=== PATIENT | female | born 1945 | race Caucasian/White ===

== ENCOUNTER 2016-12-17 04:24 | Inpatient (IN) | payer OTHER ==
--- NOTE | 2016-12-09 09:02 | History & Physical Pre-Op ---
General Information and HPI History of Present Illness: Patient present for re-evaluation of hiatal hernia. It has been present for decades per her report. Previously known by me and found to have entire stomach in chest. Most recent CT chest reviewed, there is now majority of transverse colon in chest. She c/o heartburn relieved by OTC antacids. She has intermittent dysphagia to solids and occasional odynophagia. There is new nausea associated with right shoulder pain. No chest pain. Recently, there was presyncope of unclear etiology. Allergies/Medications Allergies: Coded Allergies: MDX - SULFA (sulfonamide) (SULFA (SULFONAMIDE)) (UNKNOWN 12/26/14) Home Med list Alendronate Sodium (Fosamax) 70 MG TABLET 1 TAB PO QW unk (Reported) in the morning, at least 30 minutes before the first food, beverage, or medication of the day Omeprazole (Prilosec) 20 MG CAPSULE.DR 1 CAP PO BID ACID REFLUX (Reported) Past History Medical History Neurological: NONE EENT: NONE Cardiovascular: NONE Respiratory: NONE Gastrointestinal: GERD, irritable bowel syndrome, HIATAL HERNIA Hepatic: LIVER ABSESS W DRAIN Renal: NONE Musculoskeletal: ARTHRITIS Psychiatric: NONE Endocrine: NONE Blood Disorders: NONE Cancer(s): NONE 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 She reports back pain but reports no muscle aches, no muscle weakness, and no arthralgias/ joint pain. She reports no fatigue, no fever, no night sweats, no significant weight gain, no significant weight loss, and no exercise intolerance. She reports no dry eyes, no irritation, no vision change, and no discharge. She reports no swollen glands and no neck stiffness. She reports no cough, no wheezing, no shortness of breath, and no coughing up blood. She reports no chest pain, no arm pain on exertion, no shortness of breath when walking, no shortness of breath when lying down, no palpitations, and no leg swelling. She reports no abdominal pain, no vomiting, no vomiting blood, normal appetite, no diarrhea, no constipation, no rectal bleeding, and no history of GERD. She reports no incontinence, no difficulty urinating, no hematuria, and no increased frequency. Exam & Diagnostic Data Physical Exam: Patient is a 70-year-old female. Constitutional: General Appearance: healthy-appearing, well-nourished, and well- developed. Level of Distress: no acute distress. Ambulation: ambulating normally. Head: Head: normocephalic and atraumatic. Cardiovascular: Heart Auscultation: normal S1 and S2, no rubs or gallops, and regular rate and rhythm and systolic ejection murmur. Lungs: Respiratory effort: no dyspnea. Percussion: no dullness, flatness, or hyperresonance. Auscultation: no wheezing, rales/crackles, or rhonchi and good air movement and decreased breath sounds (left). Back: Thoracolumbar Appearance: normal curvature. Abdomen: Inspection and Palpation: no tenderness, guarding, masses, rebound tenderness, or CVA tenderness and soft and non-distended. Bowel Sounds: normal. Liver: non-tender and no hepatomegaly. Spleen: non-tender and no splenomegaly. Hernia: none palpable. Skin: Inspection and palpation: no rash, lesions, ulcer, induration, nodules, jaundice, or abnormal nevi and good turgor. Musculoskeletal:: Extremities: no cyanosis, varicosities, or palpable cord and edema. Motor Strength and Tone: normal tone and motor strength. Joints, Bones, and Muscles: no contractures, malalignment, tenderness, or bony abnormalities and normal movement of all extremities. Psychiatric: Insight: good judgement and insight. Mental Status: normal mood and affect and active and alert. Orientation: to time, place, and person. Memory: recent memory normal and remote memory normal. Assessment/Plan Assessment/Plan: Hiatal hernia with obstruction but no gangrene - large type 4 hernia with stomach and colon. Concerning symptoms of right shoulder pain and nausea with presyncope. It could be due to intermittent stranglulation. Recommend hiatal hernia repair with mesh and Delfino fundoplication. K44.0: Diaphragmatic hernia with obstruction, without gangrene XRY-BARIUM SWALLOW/ESOPHAGRAM Discussion Notes Discussed compications of surgery including but not limited to bleeding, infection, bowel injury, pneumothorax, dysphagia and bloating. Discussed the postoperative diet plan and a copy was given to the patient for review. Adddendum: upper GI shows large hiatal hernia with entire stomach in chest with nonobstructive organoaxial volvulus. Proceed with plan stated above. As Ranked By This Provider Problem List: 1. Hiatal hernia
[~2016-12-17] VITALS: Ht 165.1 cm; Wt 68.0 kg
[~2016-12-17 04:24] MED LIST: CIPROFLOXACIN500 MG PO; CLARITIN10 MG PO; DILAUDID2 MG PO; FLAG500 PO; FOSAMAX70 M1 PO; MOTRIN 600 MG600 MG PO; MYRBETRIQ50 M1 PO; OXYCODONE AND A1 TA2 PO; PRILOSEC 20MG C20 MG PO; RANITIDINE PO; ZYRTEC10 M3 PO
[2016-12-17] MEDS ORDERED: PERCOCET 5-3251 EACH PO (13:38)
--- NOTE | 2016-12-17 13:38 | Patient Discharge Instructions ---
Discharge Instructions General Discharge Information You were seen/treated for: Hiatal hernia with obstruction, type IV You had these procedures: Surgery Date: 12/17/16 Name of Procedure: Laparoscopic hiatal hernia repair with mesh and Delfino fundoplication Watch for these problems: fever>101.3, increased pain, redness/swelling/drainage, shortness of breath, chest pains, dizziness No bath, but you may shower: Yes Other wound care: ok to remove bandaids. leave white steri strips in place. keep incisions clean & dry. Diet Continue normal diet: No Recommended Diet: fundoplication diet Activity Full Activity/No Limits: No Activity Self Limited: Yes Pounds, do NOT lift more than: 10 Other activity limits: no heavy lifting. no strenuous activity. Acute Coronary Syndrome Inclusion Criteria At DC or during hospital stay patient has or had the following: ACS DIAGNOSIS No Discharge Core Measures Meds if any: Prescribed or Continued at Discharge Meds if any: NOT Prescribed or Continued at Discharge Congestive Heart Failure Inclusion Criteria At DC or during hospital stay patient has or had the following: CHF DIAGNOSIS No Discharge Core Measures Meds if any: Prescribed or Continued at Discharge Meds if any: NOT Prescribed or Continued at Discharge Cerebrovascular accident Inclusion Criteria At DC or during hospital stay patient has or had the following: CVA/TIA Diagnosis No Discharge Core Measures Meds if any: Prescribed or Continued at Discharge Meds if any: NOT Prescribed or Continued at Discharge Venous thromboembolism Inclusion Criteria VTE Diagnosis No VTE Type NONE VTE Confirmed by (Test) NONE Discharge Core Measures - Per Current guidelines, there needs to be overlap - treatment for the first 5 days of Warfarin therapy. - If discharged on Warfarin prior to 5 days of - overlap therapy, the patient will need to be - assessed for post discharge needs including - *Post discharge parental anticoagulation - *Warfarin and/or parental anticoagulation education - *Follow up date to check INR post discharge At least 5 days overlap therapy as Inpatient No Meds if any: Prescribed or Continued at Discharge Note: Overlap Therapy is Warfarin and Anticoagulant Meds if any: NOT Prescribed or Continued at Discharge
--- NOTE | 2016-12-17 17:20 | Operative Report ---
Operative/Inv Procedure Report Surgery Date: 12/17/16 Name of Procedure: Laparoscopic hiatal hernia repair with mesh and Delfino fundoplication Pre-Operative Diagnosis: Hiatal hernia with obstruction, type IV Post-Operative Diagnosis: Same Estimated Blood Loss: scant Surgeon/Treasury Management Sales Consultant: CAIN ARIAS,CHAYITO Meade/Tamir Hooper Anesthesia: general endotracheal tube Implants: Stratus mesh, [place] bio a mesh Operative Indication: See preoperative H&P Operative/Procedure Note Note: After informed consent patient brought to the operating room and laid supine. Gen. anesthesia was obtained and her abdomen was prepped and draped. Skin the epigastrium was infiltrated local anesthesia transverse incision made sharply. We dissected down to the fascia and grasped with [place]'s. A fasciotomy was graded sharply and stay sutures placed. A blunt Fierro port was placed. Pneumoperitoneum was achieved. A 5 mm port was placed in the right upper quadrant and extracted and replaced with a liver retractor which was then attached to the [place]. 3, 5 ports were placed in the epigastrium and left upper quadrant after local anesthesia was instilled and under direct vision the camera. She's placed in reverse Trendelenburg while in lithotomy position. There was a massive hiatal hernia with the entire transverse colon and omentum and stomach. The transverse colon omentum was delivered and reflected inferiorly. The stomach was extracted but would not stay down without constant pressure. It was retracted inferiorly. We began dissection anteriorly along the hernia sac. The edge of the crura was incised with Sonicision device. We cut into a plane around the sac. We took our dissection on both sides of the crura back and forth until we could circumferentially dissected. This process took about 1 hour of dissection. We then dissected the sac through the areolar plane in the mediastinum. The esophagus was identified and injury was avoided to it. The sac was dissected free and then once we got around the hiatus a umbilical tape was placed posterior to the hiatus and tied to itself. This was used to aid in retraction of the esophagus. Esophagus was then circumferentially dissected in the mediastinum until we had 3 cm of intra- abdominal esophagus. I then excised the sac with a Sonicision device. The GE junction was confirmed. The crura were then reapproximated with interrupted 0 Nurolon sutures. A tear in the right rangel was encountered. 2 sutures were placed anteriorly as well. In order to close the tear on the right side I used biologic mesh. Prior to placing it we took down the short gastrics with a Sonicision device. The fundus was then placed posteriorly and a shoeshine maneuver performed. A floppy Delfino was then performed with interrupted 2-0 Vicryl. 3 sutures were placed in the inferior sutures incorporated the anterior portion of the esophagus. I then cut a piece of Stratus in a keyhole fashion and placed in the cavity. It was placed around the crura. It was difficult to maneuver given its floppy nature and tough tensile strength. It was anchored anteriorly Prolene sutures keep it centered. I then placed a piece of [place] bio a mesh over the Stratus to keep it buttressed up against the diaphragm. There was no other way to attach the Stratus mesh because of the tough nature of it. It took me happy with our to place sutures through it in the one attachment site. The bio a difficult job of holding the mesh in place. We then took down the liver retractor and confirmed adequate position of the mesh. Ports were then delivered. The fascia was closed with 0 Vicryl suture. Skin incisions closed with 4-0 Vicryl. Steri-Strips and sterile dressing applied. Sponge and needle counts are correct CC: SOHEILA ARIAS,SHELBY Liu
--- NOTE | 2016-12-17 18:17 | RADIOLOGY REPORT ---
EXAMINATION:\H\ \N\XR CHEST CLINICAL INFORMATION: Status post Delfino repair laparoscopically COMPARISON: CT chest 04/21/2016 TECHNIQUE: Frontal upright portable view of the chest was obtained. 5:42 PM FINDINGS: Extensive subcutaneous emphysema in the chest. No pneumothorax evident. Heart size is enlarged. Hazy opacity at the medial lung bases could be small underlying infiltrate. No pleural effusion. IMPRESSION: 1. Extensive subcutaneous emphysema of chest. 2. Question hazy bibasilar infiltrate. 3. Cardiomegaly.
[2016-12-17 20:52] VITALS: BP 142/88
--- NOTE | 2016-12-17 20:58 | NUR ---
PT ARRIVED FROM PACU WITH DAUGHTER AT BEDSIDE. DROWSY/AROUSABLE, SLIGHTLY FORGETFUL AT THIS TIME. FALL PRECAUTIONS PLACED FOR SAFETY. VSS, IVF INFUSING PER ORDERS. PT DENIES PAIN AT THIS TIME. ORIENTED TO CALL SYSTEM.
[2016-12-17 21:59] VITALS: BP 125/70
--- NOTE | 2016-12-17 22:04 | PN- General Surgery ---
See Addendum Subjective Subjective: Patient resting comfortably in bed. Was anxious in the early post operative period, but states that she is feeling better now. She is without complaints. Specifically she denies chest pain, shortness of breath and difficulty breathing. She denies nausea and she has not vomitted. She has a lal cather in place. She has yet to pass flatus. She has yet to ambulate. Objective Vital Signs and I&Os Vital Signs Date Time Temp Pulse Resp B/P B/P Pulse O2 O2 Flow FiO2 Mean Ox Delivery Rate 12/18 2051 97.5 101 21 142/88 94 Nasal 2.0L Cannula 12/18 2035 94 Nasal 2.0L Cannula Physical Exam: General: Alert and oriented x3, no acute distress Cardiac: Auscultated HR 98, s1s2, RRR Pulmonary: CTA bilaterally, non labored respiratory effort, on 2 l nasal cannula Abdomen: Ciera-incisional tenderness appreciated, non-distended, normo-active bowel sounds ausculated. Dressings are dry and intact Extremities: Moves all extremities, distal sensations intact, skin warm and well perfused, bilateral calves soft and non-tender Crepitus/Emphysema: Palpable crepitus noted in bilateral upper extremites, chest and face. When compared to immediate post operative period, it does not appear to have worsened. Assessment/Plan Assessment/Plan This is a 71 year old female, POD 0, s/p laparoscopic repair of hiatal hernia. PMH is significant for Overactive bladder, GERD, and allergies. Post operative course as expected at the present time. -Consider fundo diet in am -Nutrition consult ordered -Continue home meds -Plan on dc lal catheter in am -Pain regimen to include ofirmev and po oxycodone -Abx ppx to include ancef q 8hrs -DVT ppx to include sub Q heparin -OOB as tolerated with assist -Will discuss with Dr. Salamanca Core Measures/Miscellaneous Venous Thromboembolism VTE Risk Factors: Age > 40, Surgery VTE Contraindications: No Contraindications VTE Diagnosis: No Beta Alvarez Is Beta Avlarez a Home Med? No Antibiotics Is Patient on Antibiotics? Yes If Yes: prophylaxis
[2016-12-17 23:49] VITALS: BP 120/80
[2016-12-18 02:27] VITALS: BP 122/76
[2016-12-18 06:00] VITALS: BP 118/82
--- NOTE | 2016-12-18 07:35 | PN- Student ---
ELIAS RENEE 12/18/16 0732: Subjective Subjective: POST-OP DAY #1 Pt is a 71 year old female with a history of GERD, IBS, & cystocele who is post- op day #1 of a hiatal hernia repair lap Delfino procedure who states she is feeling well. She offers no complaints. Her pain is well controlled. She denies any nausea, vomiting, fever or chills. She reports passing flatus, however denies any bowel movements. ROS Cardiac: Denies chest pain. Respiratory: Denies shortness of breath. GI: + Flatus but no BM. Musculoskeletal: Denies any pain, but has not ambulated post operatively. : Denies any burning or irritation from the lal catheter. Objective Objective: General: Alert & oriented x3. Appropriate affect. Skin: + crepitus around neck and upper thorax. Cardiac: S1S2. Normal rate, regular rhythm, no murmurs, rups, or gallops. Respitarory: CABL, no wheezes, rales, or rhonci. GI: Non-distended, +BS, non-tender, bandages C/D/I, non-erythematous. Musculoskeletal: No edema in extremities. Assessment/Plan Assessment: Assessment: This is a 71 year old female who is POD #1 of a lap Delfino procedure who is doing well with no complaints. Plan: -Nutrition consult to advance diet. -Promote ambulation. -Promote use of incentive spirometer. -Remove lal catheter. -Follow up with Dr. Salamanca. IGNACIO NEWMAN 12/18/16 0704: Assessment/Plan Plan: agree with above PA-S note POD#1 laparoscopic hiatal hernia repair with mesh and Delfino fundoplication for hiatal hernia with obstruction, type IV tolerating fundoplication diet d/c iv fluids d/c lal catheter f/u labs oob/ambulation hep sc - dvt ppx d/c planning, likely home later today will d/w
[2016-12-18 08:44] LABS: ABSOLUTE BASOPHIL COUNT 0 /CUMM (0.0-0.2); ABSOLUTE EOSINOPHIL COUNT 0 /CUMM (0.0-0.7); ABSOLUTE GRANULOCYTE CT 8.1 /CUMM (1.4-6.5); ABSOLUTE LYMPH COUNT 0.8 /CUMM (1.2-3.4); ABSOLUTE MONOCYTE COUNT 0.7 /CUMM (0.10-0.60); BASOPHIL % 0.1 % (0.0-2.0); EOSINOPHIL % 0 % (0-5); HEMATOCRIT 38.7 % (37-47); MEAN CORPUSCULAR HGB 31.9 PG (27.0-31.0); MEAN CORPUSCULAR HGB CONC 32.9 G/DL (33.0-37.0); MEAN CORPUSCULAR VOLUME 96.9 FL (81.0-99.0); MEAN PLATELET VOLUME 8.6 FL (7.4-10.4); PLATELET COUNT 229 /CUMM (130-400); RED BLOOD CELL CT 3.99 /CUMM (4.20-5.40)
[2016-12-18 10:11] VITALS: BP 130/80
[2016-12-18 10:52] LABS: WHITE BLOOD CELL COUNT 9.6 /CUMM (4.8-10.8)
[2016-12-18] MEDS ORDERED: PERCOCET 5-3251 EACH PO (14:54)
== END 2016-12-18 14:29 | DRG 328 ==
LOC: SDA 04:24 → ENRESERV 18:58 → ENTRNSPT 19:50 → EDTRNSPTSTS 20:11 → 2NA 20:19 → CMPTRNSPT 20:39 → 2NA 12-18 14:29
PROVIDERS: Physician Assistant; ADMIT Surgery
PROC: 0BUS4JZ (ICD-10-PCS; principal; 2016-12-17)
PROC: 0DV44ZZ Restriction of Esophagogastric Junction, Percutaneous Endoscopic Approach (ICD-10-PCS; 2016-12-17)
PROC: 0BUR4JZ (ICD-10-PCS; 2016-12-17)
DX: K44.0 Diaphragmatic hernia with obstruction, without gangrene (principal); N32.81 Overactive bladder; K58.9 Irritable bowel syndrome, unspecified; M19.90 Unspecified osteoarthritis, unspecified site; Z87.891 Personal history of nicotine dependence; K21.9 Gastro-esophageal reflux disease without esophagitis
CPT/HCPCS: 2NASP; 36415; 82436; 87086; C1781; J0131; J0690; J1644; J2405; J7042

== ENCOUNTER → 2017-10-09 | Day surgery (SDC) | payer OTHER ==
[~2017-10-09] VITALS: Ht 165.1 cm; Wt 66.7 kg
[~2017-10-09] MED LIST changes: +ACETAMINOPHEN500 M4 PO; +BENADRYL25 MG PO; +MULTIVITAMINS1 EAC9 PO; +PERCOCET 5-3251 EACH PO; +PROBIOTIC1 EAC4 PO; +VITAMIN D1000 UNIT PO; +ZESTRIL10 M1 PO
--- NOTE | 2017-10-09 09:46 | Operative Report ---
Operative/Inv Procedure Report Surgery Date: 10/09/17 Name of Procedure: Laparoscopic right inguinal hernia repair Pre-Operative Diagnosis: Right inguinal hernia Post-Operative Diagnosis: Same Estimated Blood Loss: scant Surgeon/Spotter: Cheikh ARIAS,Oumar Meade/Amanda CAMACHO Anesthesia: general endotracheal tube Implants: Parietex mesh Operative Indication: 71-year-old relatively healthy woman presents with intermittent incarcerating right inguinal hernia. There was concern of a contralateral hernia on examination she presents for right-sided repair and left-sided exploration Operative/Procedure Note Note: After consent patient is brought to the operating room laid supine. General anesthesia was obtained and the abdomen was prepped and draped. Skin was anesthetized with local anesthesia and a transverse infraumbilical incision made sharply. We identified the rectus fascia and incised transversely. Stay sutures were placed. Rectus muscle was retracted laterally and a dissecting balloon placed posterior to it. It was inflated under direct vision the camera and replaced with a blunt Fierro port. Gas was instilled. 2, 5 mm ports were placed in the infraumbilical midline after local anesthesia was instilled and under direct vision and camera. Began our dissection at the pubis and delineated the symphysis. Juan's ligament was identified and cleared. Then dissected laterally and developed the iliopubic tract. There is a large indirect sac which was teased off of the round ligament and reduced. The round ligament was divided with cautery. There was some mild bleeding from the epigastric vessel which was controlled with clip ligation.. Once the dissection was completed a right-sided piece of Parietex mesh was placed in the cavity. It was placed over the to cover internal ring and cover the femoral and direct spaces as well. It was tacked medially to keep it in proper position. We then turned attention to the contralateral side. There is no femoral direct or indirect hernia and hernia repair was not performed. Gas was allowed to escape on maintaining proper orientation of the mesh. The fascia was closed with 0 Vicryl suture. Skin incisions closed with 4-0 Vicryl. Steri-Strips and sterile dressing applied. Sponge and needle counts are correct. Findings: Indirect CC: Aleisha ARIAS,Chaitanya Liu
== END ==
LOC: STS 01:02
DX: K40.90 Unilateral inguinal hernia, without obstruction or gangrene, not specified as recurrent (principal); K21.9 Gastro-esophageal reflux disease without esophagitis; I10 Essential (primary) hypertension
CPT/HCPCS: 93005; 93010; C1781; J0690; J2250